=== PATIENT | female | born 1985 | race Caucasian/White ===

== ENCOUNTER 2025-05-29 23:16 | Emergency (ER) | payer OTHER ==
[~2025-05-29] VITALS: Ht 162.6 cm; Wt 67.2 kg
[2025-05-29 23:56] VITALS: O2SAT 99
[2025-05-30] MEDS: ACETAMINOPHEN WITH CODEINE 300/30MG TABLET PO NR (02:29)
[2025-05-30] MEDS: KETOROLAC 30MG/ML VIAL IM NR (02:29)
[2025-05-30] MEDS ORDERED: IBUP-1455 PO (02:36)
[2025-05-30] MEDS ORDERED: CYCL5TAB3 PO (02:36)
[2025-05-30 02:44] VITALS: BP 146/83; PULSE 60; RESP 18; TEMP 36.8; O2SAT 100
== END 2025-05-30 02:47 | disposition home or self-care (01) ==
LOC: ER 23:16
DX: S16.1XXA Strain of muscle, fascia and tendon at neck level, initial encounter (principal); Z98.1 Arthrodesis status; V89.2XXA Person injured in unspecified motor-vehicle accident, traffic, initial encounter; Y93.89 Activity, other specified; Y92.410 Unspecified street and highway as the place of occurrence of the external cause; Y99.8 Other external cause status
CPT/HCPCS: 99285; 72125; 81025; 96372; J1885